=== PATIENT | female | born 1935 | race Caucasian/White ===

== ENCOUNTER 2017-02-03 12:30 | Outpatient (RCR) | payer MEDICARE, OTHER, SELFPAY ==
--- NOTE | 2016-12-23 18:31 | HP.OTEVAL_ITS ---
Patient's Visit Information KIMBERLEY HOOK is a 81 year old F, referred to Occupational Therapy by Franko Gallegos,, with a diagnosis of CTS R UE, and trigger finger ring and middle fingers. Date of Evaluation: 12/23/16 Occupational Therapist: Gauri Brar - Subjective Subjective: Pt., Kimberley, arrived and notthats he used to wear brace on R hand at night that seemed to help pain. However, recently fingers stick' and she recieve corisone shot to help. She noted L hand CTS release 10 months ago. - Pain Right Hand 0 Pain Intensity Range: 3, 4 - ROM MP: R 2nd -5th: 0-63, 0-70,0-73, 0-71; L 0-75, 0-80, 0-76, 0-85 PIP: WFL;WFL DIP: WFL ROM Comments: Pt. is able to form tight composite fist onL hand. She has decreased ability to form fist on R hand without pain. 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 notes increased numbness in tip of middle finger. She notes decreased touch sensation in first three finger of R dominant hand. She notes increased dropping of objects. Pt. monfilament test indicates decrease light touch sensation and protective reflex. 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 Goal:: Pt to increase R hand ROM to promote increased ability to form composite fist for ADL/IADLs Goal:: Pt. to implement and understand joint protection methods to promote increased ability to completed ADL/IADls including leisure interest of piano 80 % of the time by d/c. - Rehabilitation Rehabilitation Potential: Good - Anticipated Interventions Anticipated Interventions: A/AAROM/PROM, Strengthening, Massage, Modalities, Orthoses, Joint Protection/Energy Conservation, Ergonomic Education, Dynamic Sitting Balance, Fine Motor Coord/Raymundo, Neuro Reeducation, Caregiver Training , Home Program - Visit Plan Frequency: 2x /Week Duration: 4-6 Weeks TEXT: Thank you for the opportunity to evaluate your patient. For Medicare and Medicare HMO plans, please review the plan of care and approve it. It will need to be FAXED BACK to us at [phone] for Medicare purposes. Please let me know if there are questions or concerns regarding this plan of care. Physician Signature: Date:
--- NOTE | 2016-12-24 08:50 | HP.OTEVAL ---
Patient's Visit Information KIMBERLEY HOOK is a 81 year old F, referred to Occupational Therapy by Franko Gallegos,, with a diagnosis of CTS R UE, and trigger finger ring and middle fingers. Date of Evaluation: 12/23/16 Occupational Therapist: Gauri Brar - Subjective Subjective: Pt., Kimberley, arrived and noted that she has been having increasing problems with finger pain and sticking. She noted that she used to wear brace on R hand at night that seemed to help pain. However, recently fingers stick and she recieve cortisone shot to help. Shot has seemed to help decrease pain in middle finger but ring finger is still persistent with pain. She notes she has terminated wrist splitn at night as she felt it no longer was doing anything as wrist pain has decreased. She noted L hand CTS release 10 months ago. - Pain Right Hand 0 Pain Intensity Range: 3, 4 - Objective Objective/Observation: Pt. has increased deformation at R middle finger DIP and notes increased numbness at finger tip. 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 Pt. is negative for phalens test at [facility] time to indicate CTS. - ROM Wrist: flexion R 0-74, 0-67; extension R 0-46, L 0-45 MP: R 2nd -5th: 0-63, 0-70,0-73, 0-71; L 0-75, 0-80, 0-76, 0-85 PIP: WFL;WFL DIP: WFL ROM Comments: Pt. is able to form tight composite fist onL hand. She has decreased ability to form fist on R hand without pain. 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 notes increased numbness in tip of middle finger. She notes decreased touch sensation in first three finger of R dominant hand. She notes increased dropping of objects. Pt. monfilament test indicates decrease light touch sensation and protective reflex. 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 Goal:: Pt to increase R hand ROM to promote increased ability to form composite fist for ADL/IADLs Goal:: Pt. to report 1/10 pain with used R hand for leisure and functional tasks 4/5 trials 80% of the tiem to decrease discomfort and increased (I) in ADL/IADls by time of d/c. Goal:: Pt. to implement and understand joint protection methods to promote increased ability to completed ADL/IADls including leisure interest of piano 80% of the time by d/c. Goal:: Pt. to be mod I to return to all ADL/IADLs with use of a/e or a/d as needed 4/5 trials 80% of the time by d/c. - Rehabilitation General Assessment: Pt., Kimberley, seen on this date for OT evaluation. She noted cortisone shot approximately 8 weeks ago for R middle and ring finger trigger fingers and had CTS release surgery on L hand approximately 10 months ago. She presents with decreased ROM to form full tight fist on R dominant hand. Pt. presents with increased touch sensory inpairment as tested through monofilament test on R middle, index, and thumb. She exhibited negative phalens, reverse phalens test, and finklesteins test. Additional test to be completed to determine median nerve involvement. OT to treat for decreased trigger finger symptoms through splint, increased ROM ad strength, and returning to all normal ADL/IADLs for increased QOL. Rehabilitation Potential: Good - Anticipated Interventions Anticipated Interventions: A/AAROM/PROM, Strengthening, Massage, Modalities, Orthoses, Joint Protection/Energy Conservation, Ergonomic Education, Dynamic Sitting Balance, Fine Motor Coord/Raymundo, Neuro Reeducation, Caregiver Training, Home Program - Visit Plan Frequency: 2x /Week Duration: 4-6 Weeks General Plan: Pt. trigger finger splint fabricated for R ring finge rat that is most painful at this time. She was educated on splint schedule, skin integrity, and HEP in which she verbalized undertsnading and was provided with handouts. Pt. present with decreased ROM, strength, touch sensation , and increased pain. OT to address these issues through orthotic management, strength and ROM programs, and modalities as needed. TEXT: Thank you for the opportunity to evaluate your patient. For Medicare and Medicare HMO plans, please review the plan of care and approve it. It will need to be FAXED BACK to us at [phone] for Medicare purposes. Please let me know if there are questions or concerns regarding this plan of care. Physician Signature: Date:
--- NOTE | 2017-01-27 13:02 | HP.OTCOM_ITS ---
OT Communication Note 01/27/[address] Franko Gallegos Reassessment completed on this date. Kimberley has been fabricated trigger finger splint for R 4th digit in which she has been compliant with wearing. Although, triggering of finger has decreased she still notes that total functioning of finger is 25% of 100 compared to PLOF. She notes consistent pain with formation of composite fist 6-7/10 pain. Pt. ROM of R RF at MCP is 14-70 and RF MCP 5-72 degrees. This ROM has progressed from previous measurements. 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 Pt. is unable to accurately recount when she received cortisone shot for trigger finger but notes shot did provide relief for three weeks before pain continued. She is to be seen by OT for 2x more sessions and OT has recommended that Pt. consults further with physician as she is still having difficulty with finger triggering. Sincerely, Gauri Brar Contact Information
== END 2017-02-03 13:00 | disposition home or self-care (01) ==
LOC: OT 12:30
PROVIDERS: Family Provider Family Medicine; PCP Family Medicine; Visit Provider Orthopaedic Surgery
DX: G56.01 Carpal tunnel syndrome, right upper limb (principal); M65.341 Trigger finger, right ring finger; M65.331 Trigger finger, right middle finger
CPT/HCPCS: 97035; 97110; 97140; 97166; 97530; 97760; G8987; G8988

== ENCOUNTER → 2017-12-03 15:12 | Outpatient (CLI) | payer MEDICARE, OTHER, SELFPAY | PROVIDERS: Family Provider Family Medicine; PCP Family Medicine; Visit Provider Orthopaedic Surgery | DX: Z01.810 Encounter for preprocedural cardiovascular examination (principal); Z01.811 Encounter for preprocedural respiratory examination | CPT/HCPCS: 71046; 93005 ==

== ENCOUNTER 2020-04-27 11:00 | Outpatient (RCR) | payer MEDICARE, OTHER, SELFPAY | END 2020-04-27 23:59 | LOC: IMMUN 11:00 | PROVIDERS: PCP Family Medicine; Visit Provider Family Medicine | DX: Z23 Encounter for immunization (principal) | CPT/HCPCS: 0011A; 0012A; 91301 ==

== ENCOUNTER → 2024-11-04 | Outpatient (CLI) | payer MEDICARE, SELFPAY ==
--- NOTE | 2024-11-04 14:20 | MRI_ITS ---
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 Multiplanar and multisequence images were obtained without IV contrast administration. COMPARISON: COMPARISON : None provided. FINDINGS: Bone and bone Marrow: No acute osseous signal changes are seen. Mild degenerative changes are seen throughout the visualized midfoot. Mild degenerative changes are seen throughout the toes, but mild to moderate at the 1st metatarsophalangeal joint Effusion: No significant joint effusion is seen. Soft Tissues: No soft tissue mass is noted. No free or loculated fluid collection is evident. Ligaments and Tendons: Chronic appearing partial tear of the flexor tendon of the level of the 2nd metatarsal head extending to the mid proximal phalanx level. A lesser similar chronic appearing tear is seen of the 3rd ray. MRI/Lower Ext/No Jt/w/o IMPRESSION: 1. Chronic appearing partial tears of the flexor tendons of the 2nd and 3rd ray s. 2. Degenerative changes is noted. Reading Location: [place] [id number]
--- NOTE | 2024-11-04 14:20 | MRI_ITS ---
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 Multiplanar and multisequence images were obtained without IV contrast administration. COMPARISON: COMPARISON : None provided. FINDINGS: Bone and bone Marrow: No acute osseous signal changes are seen. Mild degenerative changes are seen throughout the visualized midfoot. Mild degenerative changes are seen throughout the toes, but mild to moderate at the 1st metatarsophalangeal joint Effusion: No significant joint effusion is seen. Soft Tissues: No soft tissue mass is noted. No free or loculated fluid collection is evident. Ligaments and Tendons: Chronic appearing partial tear of the flexor tendon of the level of the 2nd metatarsal head extending to the mid proximal phalanx level. A lesser similar chronic appearing tear is seen of the 3rd ray. MRI/Lower Ext/No Jt/w/o IMPRESSION: 1. Chronic appearing partial tears of the flexor tendons of the 2nd and 3rd ray s. 2. Degenerative changes is noted. Reading Location: [place] [id number]
== END | disposition home or self-care (01) ==
PROVIDERS: PCP Family Medicine; Referring Provider Podiatrist; Visit Provider Podiatrist
DX: M79.672 Pain in left foot (principal); M77.52 Other enthesopathy of left foot and ankle; S93.522D Sprain of metatarsophalangeal joint of left great toe, subsequent encounter; X58.XXXD Exposure to other specified factors, subsequent encounter
CPT/HCPCS: 73718

== ENCOUNTER → 2025-02-24 | Outpatient (CLI) | payer MEDICARE, SELFPAY ==
[2025-02-24 13:00] LABS: Vitamin B12 483 pg/mL (180-914)
== END | disposition home or self-care (01) ==
LOC: BFHLAB 09:38
PROVIDERS: PCP Family Medicine; Visit Provider Family Medicine
DX: R41.3 Other amnesia (principal)
CPT/HCPCS: 36415; 82607; 84443